=== PATIENT | male | born 1965 | race American Indian/Alaskan Native ===

== ENCOUNTER 2017-03-24 09:11 | Day surgery (SDC) | payer OTHER ==
[2017-03-24 10:56] LABS: Basophils % (Auto) 0.6 % (0.0-1.8); Eosinophils % (Auto) 2.5 % (0.0-4.3); Hematocrit 41.1 % (35.5-45.6); Hemoglobin 13.2 gm/dl (11.8-15.2); Mean Corpuscular HGB Conc 32 % (32-34); Mean Corpuscular Hemoglobin 27 pg (28-32); Mean Corpuscular Volume 84 fl (84-94); Platelet Count 178 K/mm3 (140-440); Red Blood Count 4.91 M/mm3 (3.65-5.03); Red Cell Distribution Width 14.5 % (13.2-15.2); White Blood Count 7.8 K/mm3 (4.5-11.0)
[2017-03-24 11:05] LABS: INR 1.14 (0.87-1.13); Partial Thromboplastin Time 29.6 Sec. (24.2-36.6)
[2017-03-24] MEDS ORDERED: XYLOCAINE 1% 20 mL ONE (11:24)
--- NOTE | 2017-03-24 12:59 | Fluoroscopy Report ---
FLUOROSCOPY MYELOGRAM 2 REGIONS History: Spondylosis, pain, radiculopathy. Description of procedure: Informed consent was obtained. Sterile technique was utilized. 1% lidocaine for skin anesthesia. Using fluoroscopy guidance, lumbar puncture was performed at the L3-4 level. Approximately 12 cc of Omnipaque-300 was administered intrathecally. The contrast agent was free-flowing to the cervical and thoracic regions. No high-grade central canal stenosis is appreciated. Please await the formal CT myelogram report. Impression: Successful cervical and thoracic myelograms as described.
[2017-03-24 14:23] VITALS: BP 128/78
--- NOTE | 2017-03-24 15:33 | Cat Scan Report ---
CT THORACIC SPINE WITH CONTRAST HISTORY: Spondylosis, radiculopathy. TECHNIQUE: Helical CT was performed at 1.25 mm intervals. Sagittal and coronal reformatted images. Intrathecal contrast was administered. FINDINGS: Anterior fusion changes from C6-T1 are partially imaged and appear unremarkable. The thoracic vertebral bodies, posterior elements, disc spaces, spinal canal and neural foramina are within normal limits. Minimal anterior spurring is noted throughout the midthoracic spine. No evidence for bulging disc, herniation or central canal stenosis. No neural foraminal impingement is appreciated. The thoracic spinal cord is within normal limits. IMPRESSION: CT myelogram of the thoracic spine is within normal limits.
--- NOTE | 2017-03-24 15:40 | Cat Scan Report ---
CT CERVICAL SPINE WITH CONTRAST HISTORY: Spondylosis, radiculopathy. TECHNIQUE: Helical CT was performed following intrathecal contrast in 1.25 mm intervals. Sagittal and coronal reformatted images. FINDINGS: Anterior fusion changes from C6-T1 appear intact and stable. Disc spacers are noted at C6-7 and C7-T1. There is no convincing bony fusion at C6-7. There is partial bony fusion at C7-T1. There is normal height and alignment of the cervical vertebral bodies. No evidence for fracture, subluxation or bone lesion. The posterior elements are within normal limits. C2-3: No abnormality. C3-4: Minimal posterior and bilateral uncovertebral spurring. No central canal stenosis or significant neural foraminal narrowing. C4-5: No significant abnormality. C5-6: Mild posterior spurring is evident which lateralizes to the right side. No central canal stenosis or significant neural foraminal narrowing. C6-7: There is moderate posterior and left uncovertebral spurring. No central canal stenosis. There is moderate left neural foraminal narrowing estimated at 50%. C7-T1: No significant abnormality. Impression: Anterior fusion changes from C6-T1 as outlined above. Mild spondylosis which is most pronounced at C5-6 and C6-7. There is moderate left neural foraminal narrowing at C6-7. No central canal stenosis is appreciated.
== END 2017-03-24 14:45 | disposition home or self-care (01) ==
LOC: CATHLABREC 09:11
PROVIDERS: ATTEND Orthopaedic Surgery
DX: M47.22 Other spondylosis with radiculopathy, cervical region (principal)
CPT/HCPCS: 36415; 62305; 72126; 72129; 85025; 85610; 85730; Q9967